=== PATIENT | female | born 1950 | race Caucasian/White ===

== ENCOUNTER 2024-03-27 16:21 | Inpatient (IN) | payer MEDICAID ==
[~2024-03-27] VITALS: Ht 152.4 cm; Wt 77.7 kg
[~2024-03-27 16:21] MED LIST: AMLO-375 MT; ASPI-1497 MT; FERR325T6 PO; LEVO100T9 PO; LISI40TA13 PO; METF-416 PO; OMEP20CA14 PO; PIOG15TA68 PO; SIMV-345 PO; SIMV-46 PO
[2024-03-27 16:27] VITALS: O2SAT 98
[2024-03-27 17:00] LABS: BASOPHILS % 0.2 % (0.0-2.0); EOSINOPHILS % 0.5 % (0.0-5.0); HEMATOCRIT. 32.5 % (36.0-48.0); HEMOGLOBIN. 11.4 g/dL (12.0-16.0); LYMPHOCYTES % 17.8 % (20.0-50.0); MEAN CORPUSCULAR HEMOGLOBIN 31.7 pg (28.0-32.0); MEAN CORPUSCULAR HGB CONC 34.9 g/dL (31.0-37.0); MEAN CORPUSCULAR VOLUME 90.9 fL (81.0-99.0); NEUTROPHILS % 74.5 % (40.0-76.0); PLATELET 297 x1000/uL (130-400); RED BLOOD CELL COUNT 3.58 mill/uL (4.2-5.4); RED CELL DISTRIBUTION WIDTH 12.6 % (11.6-14.6); WHITE BLOOD COUNT 11.2 x1000/uL (4.5-11.0)
[2024-03-27 17:03] LABS: POTASSIUM 3.4 mEq/L (3.5-5.1)
[2024-03-27 17:08] LABS: INR 0.9; PROTHROMBIN TIME 10.2 sec (9.6-11.0)
[2024-03-27 17:09] LABS: CREATININE 1.1 mg/dL (0.6-1.0)
[2024-03-27] MEDS: SODIUM CHLORIDE 0.9% 1,000 ML IV ONE (17:59)
[2024-03-27 19:01] LABS: CLARITY URINE CLEAR (CLEAR); COLOR URINE YELLOW (YELLOW); GLUCOSE URINE NEGATIVE (NEGATIVE); KETONES URINE NEGATIVE (NEGATIVE); LEUKOCYTE ESTERASE URINE TRACE (NEGATIVE); NITRITE URINE NEGATIVE (NEGATIVE); OCCULT BLOOD URINE TRACE (NEGATIVE); PH URINE 7.5 (4.5-8.0); PROTEIN URINE NEGATIVE (NEGATIVE); SPECIFIC GRAVITY URINE 1.006 (1.005-1.030); UROBILINOGEN URINE 0.2 E.U./dL (0.2-1.0)
[2024-03-27 19:19] LABS: BACTERIA URINE TRACE; RBC URINE 0-2 /hpf (0-2); SQUAMOUS EPITHELIAL CELL URINE FEW /lpf (RARE/1+); WBC URINE 0-2 /hpf (0-2)
[2024-03-27] MEDS: HYDROCODONE/ACETAMINOPHEN 5/325MG TABLET PO ONE (21:30)
[2024-03-28] VITALS (68 sets, daily range): BP systolic 109–150; BP diastolic 51–117; PULSE 52–96; RESP 12–29; TEMP 97.1–97.6
[2024-03-28 01:02] LABS: CHLORIDE 90 mEq/L (98-107)
[2024-03-28 01:03] LABS: CALCIUM 12.3 mg/dL (8.7-10.4); CARBON DIOXIDE 21 mEq/L (21-32)
[2024-03-28 01:08] LABS: CREATININE 0.9 mg/dL (0.6-1.0); GLUCOSE 161 mg/dL (70-105); UREA NITROGEN BLOOD 13 mg/dL (9-23)
[2024-03-28 01:10] LABS: PHOSPHORUS 3.2 mg/dL (2.5-4.9)
[2024-03-28 01:13] LABS: T4 FREE 1.38 ng/dL (0.89-1.76); THYROID STIMULATING HORMONE 16.03 uIU/mL (0.55-4.78)
[2024-03-28 01:20] LABS: SODIUM 116 mEq/L (136-145)
[2024-03-28] MEDS ORDERED: SODIUM CHLORIDE 3% 500ML IV SOLN IV ONE (02:00)
[2024-03-28] MEDS: MAGNESIUM 2 G PREMIX 50 ML IV ONE (02:55)
[2024-03-28] MEDS: KCL 20MEQ/100ML PREMIX 100 ML IV ONE (02:55)
[2024-03-28] MEDS: POTASSIUM CHLORIDE 20MEQ TABLET SR PO ONE (02:56)
[2024-03-28] MEDS: SODIUM CHLORIDE 3% 150 ML IV NR (03:08)
[2024-03-28] MEDS: DESMOPRESSIN ACETATE 4MCG/ML AMP IV ONE (03:33)
[2024-03-28] MEDS ORDERED: DOPAMINE 400MG/250ML PREMIX 250 ML IV PRN (05:30)
[2024-03-28] MEDS: SODIUM CHLORIDE 0.9% 1,000 ML IV SCH (06:25)
[2024-03-28] MEDS: ATROPINE SULFATE 1MG/10ML SYR IV PRN (07:04)
[2024-03-28 08:32] LABS: BASOPHILS % 0.3 % (0.0-2.0); EOSINOPHILS % 0.1 % (0.0-5.0); HEMATOCRIT. 31.2 % (36.0-48.0); HEMOGLOBIN. 10.9 g/dL (12.0-16.0); LYMPHOCYTES % 12.5 % (20.0-50.0); MEAN CORPUSCULAR HEMOGLOBIN 31.6 pg (28.0-32.0); MEAN CORPUSCULAR HGB CONC 35.1 g/dL (31.0-37.0); MEAN CORPUSCULAR VOLUME 90.3 fL (81.0-99.0); MEAN PLATELET VOLUME 7.7 fl (7.4-10.4); NEUTROPHILS % 81.1 % (40.0-76.0); PLATELET 245 x1000/uL (130-400); RED BLOOD CELL COUNT 3.45 mill/uL (4.2-5.4); RED CELL DISTRIBUTION WIDTH 12.7 % (11.6-14.6); WHITE BLOOD COUNT 8.4 x1000/uL (4.5-11.0)
[2024-03-28 08:45] LABS: CHLORIDE 93 mEq/L (98-107); POTASSIUM 3.9 mEq/L (3.5-5.1)
[2024-03-28 08:46] LABS: CALCIUM 9.3 mg/dL (8.7-10.4); CARBON DIOXIDE 20 mEq/L (21-32)
[2024-03-28 08:51] LABS: CREATININE 0.7 mg/dL (0.6-1.0); GLUCOSE 194 mg/dL (70-105); UREA NITROGEN BLOOD 9 mg/dL (9-23)
[2024-03-28 09:17] LABS: SODIUM 120 mEq/L (136-145)
[2024-03-28 09:18] LABS: TROPONIN I HIGH SENSITIVITY 36 ng/L (3.0-34)
[2024-03-28] MEDS ORDERED: LEVOTHYROXINE SODIUM 150MCG TABLET PO SCH (11:00)
[2024-03-28] MEDS: AMLODIPINE 5MG TABLET PO SCH (11:29)
[2024-03-28] MEDS: METFORMIN HCL 500MG TABLET PO SCH (11:29)
[2024-03-28] MEDS: BENAZEPRIL 10MG TABLET PO SCH (11:29)
[2024-03-28] MEDS: FAMOTIDINE 20MG/2ML VIAL IV SCH (11:29)
[2024-03-28 13:09] LABS: POTASSIUM 3.7 mEq/L (3.5-5.1)
[2024-03-28 13:22] LABS: AMMONIA < 17 uMol/L (<32)
[2024-03-28] MEDS: LEVOTHYROXINE SODIUM 100 MCG/ VIAL IV NR (13:23)
[2024-03-28 13:26] LABS: IRON 86 ug/dL (50-170)
[2024-03-28 13:29] LABS: TOTAL IRON BINDING CAPACITY 205 ug/dl (250-425)
[2024-03-28 13:32] LABS: FERRITIN 81 ng/mL (10-291); VITAMIN B12 SERUM 601 pg/mL (211-911)
[2024-03-28 13:47] LABS: FOLIC ACID (FOLATE) SERUM > 20.00 ng/mL (>5.38)
[2024-03-28] MEDS ORDERED: GLIP5TAB22 PO (14:41)
[2024-03-28] MEDS ORDERED: LISI40TA13 PO (14:42)
[2024-03-28] MEDS ORDERED: LEVO100T9 PO (14:45)
[2024-03-28] MEDS ORDERED: FERR325T30 PO (14:45)
[2024-03-28] MEDS ORDERED: ATOR40TA70 PO (14:45)
[2024-03-28] MEDS ORDERED: LINA5TAB PO (14:45)
[2024-03-28] MEDS ORDERED: CHLO25TA2 PO (14:45)
[2024-03-28] MEDS ORDERED: AMLO10TA80 PO (14:45)
[2024-03-28] MEDS ORDERED: DORZ10DR9 EACHEYE (14:45)
[2024-03-28] MEDS ORDERED: LATA2.5D14 EACHEYE (14:45)
[2024-03-28] MEDS ORDERED: PIOG15TA66 PO (14:45)
[2024-03-28] MEDS ORDERED: METF-416 PO ×2 (14:46)
[2024-03-28] MEDS: MAGNESIUM 4 G PREMIX 100 ML IV NR (16:30)
[2024-03-28] MEDS ORDERED: DEXTROSE 50% WATER 50ML SYRINGE IV PRN (19:15)
[2024-03-28] MEDS: BLOOD SUGAR DIAGNOSTIC STRIP TEST SCH (20:16)
[2024-03-28] MEDS: ATORVASTATIN CALCIUM 20MG TABLET PO SCH (20:22)
[2024-03-28] MEDS: INSULIN LISPRO 100 UNITS/ML SUBCUT SCH (20:25)
[2024-03-29] VITALS (44 sets, daily range): BP systolic 112–161; BP diastolic 51–133; PULSE 63–85; RESP 14–32; TEMP 97.4–97.8
[2024-03-29 07:04] LABS: CHLORIDE 93 mEq/L (98-107); POTASSIUM 3.2 mEq/L (3.5-5.1); SODIUM 122 mEq/L (136-145)
[2024-03-29 07:05] LABS: CARBON DIOXIDE 22 mEq/L (21-32)
[2024-03-29 07:06] LABS: CALCIUM 8.5 mg/dL (8.7-10.4)
[2024-03-29 07:10] LABS: CREATININE 0.7 mg/dL (0.6-1.0)
[2024-03-29 07:11] LABS: GLUCOSE 143 mg/dL (70-105); UREA NITROGEN BLOOD 6 mg/dL (9-23)
[2024-03-29 07:12] LABS: BASOPHILS % 0.2 % (0.0-2.0); EOSINOPHILS % 0.5 % (0.0-5.0); HEMATOCRIT. 33.7 % (36.0-48.0); HEMOGLOBIN. 11.5 g/dL (12.0-16.0); LYMPHOCYTES % 12.5 % (20.0-50.0); MEAN CORPUSCULAR HEMOGLOBIN 32.5 pg (28.0-32.0); MEAN CORPUSCULAR HGB CONC 34.1 g/dL (31.0-37.0); MEAN CORPUSCULAR VOLUME 95.4 fL (81.0-99.0); MEAN PLATELET VOLUME 8.5 fl (7.4-10.4); NEUTROPHILS % 79.8 % (40.0-76.0); PLATELET 244 x1000/uL (130-400); RED BLOOD CELL COUNT 3.54 mill/uL (4.2-5.4); RED CELL DISTRIBUTION WIDTH 12.7 % (11.6-14.6); WHITE BLOOD COUNT 8.8 x1000/uL (4.5-11.0)
[2024-03-29] MEDS: LEVOTHYROXINE SODIUM 150MCG TABLET PO SCH (08:39)
[2024-03-29] MEDS: MAGNESIUM 4 G PREMIX 100 ML IV NR (10:05)
[2024-03-29] MEDS: POTASSIUM CHLORIDE 20MEQ/PACKET PO NR (10:05)
[2024-03-29] MEDS: ACETAMINOPHEN 325MG TABLET PO PRN (10:53)
[2024-03-30] VITALS: BP 156/65; PULSE 81; RESP 19; TEMP 98.4
[2024-03-30 04:00] VITALS: BP 140/59; PULSE 78; RESP 19; TEMP 98.6
[2024-03-30 06:56] LABS: CARBON DIOXIDE 22 mEq/L (21-32); CHLORIDE 92 mEq/L (98-107); POTASSIUM 3.2 mEq/L (3.5-5.1); SODIUM 121 mEq/L (136-145)
[2024-03-30 06:57] LABS: CALCIUM 8.4 mg/dL (8.7-10.4)
[2024-03-30 07:02] LABS: CREATININE 0.6 mg/dL (0.6-1.0); GLUCOSE 177 mg/dL (70-105)
[2024-03-30 07:04] LABS: PHOSPHORUS 2.4 mg/dL (2.5-4.9)
[2024-03-30 07:05] LABS: BASOPHILS % 0.2 % (0.0-2.0); EOSINOPHILS % 0.6 % (0.0-5.0); HEMATOCRIT. 30.3 % (36.0-48.0); HEMOGLOBIN. 10.6 g/dL (12.0-16.0); LYMPHOCYTES % 10.5 % (20.0-50.0); MEAN CORPUSCULAR HEMOGLOBIN 32.4 pg (28.0-32.0); MEAN CORPUSCULAR VOLUME 92.5 fL (81.0-99.0); MEAN PLATELET VOLUME 8.6 fl (7.4-10.4); MONOCYTES % 8.7 % (2.0-8.0); PLATELET 237 x1000/uL (130-400); RED BLOOD CELL COUNT 3.28 mill/uL (4.2-5.4); RED CELL DISTRIBUTION WIDTH 12.7 % (11.6-14.6); WHITE BLOOD COUNT 8.1 x1000/uL (4.5-11.0)
[2024-03-30 07:13] LABS: UREA NITROGEN BLOOD < 5 mg/dL (9-23)
[2024-03-30 08:00] VITALS: BP 149/69; PULSE 73; RESP 17; TEMP 97.9
[2024-03-30] MEDS: POTASSIUM CHLORIDE 20MEQ TABLET SR PO NR (08:55)
[2024-03-30] MEDS ORDERED: SODIUM PHOSPHATE 20 MMOL in DEXT 5% WATER 243.3333 ML IV NR (10:00)
[2024-03-30 12:00] VITALS: BP 141/59; PULSE 78; RESP 13; TEMP 98.2
[2024-03-30] MEDS: POTASSIUM PHOSPHATE 20MMOL in DEXT 5% WATER 250ML IV NR (14:15)
[2024-03-30 16:00] VITALS: BP 139/61; PULSE 85; RESP 18; TEMP 98.3
[2024-03-30] MEDS: MAGNESIUM 2 G PREMIX 50 ML IV NR (16:25)
[2024-03-30 20:00] VITALS: BP 142/60; PULSE 80; RESP 18; TEMP 100.6
[2024-03-31] VITALS: BP 136/55; PULSE 87; RESP 19; TEMP 98.4
[2024-03-31 04:00] VITALS: BP 143/60; PULSE 79; RESP 19; TEMP 98.1
[2024-03-31 07:43] LABS: CHLORIDE 94 mEq/L (98-107); POTASSIUM 3.5 mEq/L (3.5-5.1); SODIUM 124 mEq/L (136-145)
[2024-03-31 07:44] LABS: CALCIUM 8.5 mg/dL (8.7-10.4); CARBON DIOXIDE 22 mEq/L (21-32)
[2024-03-31 07:47] LABS: BASOPHILS % 0.2 % (0.0-2.0); EOSINOPHILS % 0.8 % (0.0-5.0); HEMATOCRIT. 29.4 % (36.0-48.0); HEMOGLOBIN. 10.4 g/dL (12.0-16.0); LYMPHOCYTES % 14.1 % (20.0-50.0); MEAN CORPUSCULAR HEMOGLOBIN 32.1 pg (28.0-32.0); MEAN CORPUSCULAR HGB CONC 35.5 g/dL (31.0-37.0); MEAN CORPUSCULAR VOLUME 90.4 fL (81.0-99.0); MEAN PLATELET VOLUME 8.3 fl (7.4-10.4); NEUTROPHILS % 73.9 % (40.0-76.0); PLATELET 240 x1000/uL (130-400); RED BLOOD CELL COUNT 3.25 mill/uL (4.2-5.4); RED CELL DISTRIBUTION WIDTH 12.7 % (11.6-14.6); WHITE BLOOD COUNT 6.5 x1000/uL (4.5-11.0)
[2024-03-31 07:49] LABS: CREATININE 0.6 mg/dL (0.6-1.0); GLUCOSE 172 mg/dL (70-105)
[2024-03-31 07:52] LABS: PHOSPHORUS 2.7 mg/dL (2.5-4.9)
[2024-03-31 08:00] VITALS: BP 138/61; PULSE 76; RESP 18; TEMP 97.4
[2024-03-31 08:06] LABS: UREA NITROGEN BLOOD < 5 mg/dL (9-23)
[2024-03-31] MEDS ORDERED: POTASSIUM PHOSPHATE 20 MMOL in DEXT 5% WATER 243.3333 ML IV ONE (09:15)
[2024-03-31] MEDS: POTASSIUM CHLORIDE 20MEQ TABLET SR PO NR (09:31)
[2024-03-31] MEDS: MAGNESIUM 2 G PREMIX 50 ML IV SCH (11:25)
[2024-03-31 12:00] VITALS: BP 118/57; PULSE 85; RESP 18; TEMP 97.9
[2024-03-31 16:00] VITALS: BP 138/61; PULSE 76; RESP 18; TEMP 97.4
[2024-03-31 20:00] VITALS: BP 145/64; PULSE 92; RESP 19; TEMP 98.8
[2024-04-01] VITALS: BP 142/60; PULSE 95; RESP 19; TEMP 98.4
[2024-04-01 04:00] VITALS: BP 127/56; PULSE 92; RESP 19; TEMP 99
[2024-04-01 06:34] LABS: BASOPHILS % 0.1 % (0.0-2.0); EOSINOPHILS % 0.4 % (0.0-5.0); HEMATOCRIT. 30.2 % (36.0-48.0); HEMOGLOBIN. 10.7 g/dL (12.0-16.0); LYMPHOCYTES % 11.5 % (20.0-50.0); MEAN CORPUSCULAR HEMOGLOBIN 32.4 pg (28.0-32.0); MEAN CORPUSCULAR HGB CONC 35.3 g/dL (31.0-37.0); MEAN CORPUSCULAR VOLUME 91.9 fL (81.0-99.0); MEAN PLATELET VOLUME 8.2 fl (7.4-10.4); MONOCYTES % 9.9 % (2.0-8.0); NEUTROPHILS % 78.1 % (40.0-76.0); PLATELET 253 x1000/uL (130-400); RED BLOOD CELL COUNT 3.29 mill/uL (4.2-5.4); RED CELL DISTRIBUTION WIDTH 12.9 % (11.6-14.6); WHITE BLOOD COUNT 9.8 x1000/uL (4.5-11.0)
[2024-04-01 06:38] LABS: CARBON DIOXIDE 22 mEq/L (21-32); CHLORIDE 94 mEq/L (98-107); POTASSIUM 3.5 mEq/L (3.5-5.1); SODIUM 124 mEq/L (136-145)
[2024-04-01 06:39] LABS: CALCIUM 8.6 mg/dL (8.7-10.4)
[2024-04-01 06:44] LABS: CREATININE 0.7 mg/dL (0.6-1.0); GLUCOSE 171 mg/dL (70-105); UREA NITROGEN BLOOD 9 mg/dL (9-23)
[2024-04-01 06:46] LABS: PHOSPHORUS 2.3 mg/dL (2.5-4.9)
[2024-04-01 08:00] VITALS: BP 132/58; PULSE 83; RESP 18; TEMP 97.3
[2024-04-01 12:00] VITALS: BP 121/53; PULSE 85; RESP 18; TEMP 98
[2024-04-01] MEDS: MAGNESIUM 4 G PREMIX 100 ML IV SCH (15:29)
[2024-04-01] MEDS ORDERED: SODIUM CHLORIDE 3% 500ML IV SOLN IV ONE (15:45)
[2024-04-01 16:00] VITALS: BP 130/67; PULSE 71; RESP 18; TEMP 97.9
[2024-04-01] MEDS: SODIUM CHLORIDE 3% 150 ML IV NR (17:32)
[2024-04-01 20:00] VITALS: BP 148/60; PULSE 85; RESP 18; TEMP 97.2
[2024-04-01] MEDS: POTASSIUM-SODIUM PHOSPHATE POWDER PACKET PO NR (23:15)
[2024-04-02] VITALS: BP 157/59; PULSE 84; RESP 18; TEMP 97.3
[2024-04-02 04:00] VITALS: BP 143/65; PULSE 74; RESP 18; TEMP 96.3
[2024-04-02] MEDS: POTASSIUM-SODIUM PHOSPHATE POWDER PACKET PO NR (06:55)
[2024-04-02 07:53] LABS: BASOPHILS % 0.3 % (0.0-2.0); EOSINOPHILS % 1.5 % (0.0-5.0); HEMATOCRIT. 29.8 % (36.0-48.0); HEMOGLOBIN. 10.4 g/dL (12.0-16.0); LYMPHOCYTES % 20.9 % (20.0-50.0); MEAN CORPUSCULAR HEMOGLOBIN 32.3 pg (28.0-32.0); MEAN CORPUSCULAR HGB CONC 34.8 g/dL (31.0-37.0); MEAN CORPUSCULAR VOLUME 92.7 fL (81.0-99.0); MEAN PLATELET VOLUME 7.8 fl (7.4-10.4); MONOCYTES % 9.2 % (2.0-8.0); NEUTROPHILS % 68.1 % (40.0-76.0); PLATELET 291 x1000/uL (130-400); RED BLOOD CELL COUNT 3.22 mill/uL (4.2-5.4); RED CELL DISTRIBUTION WIDTH 12.9 % (11.6-14.6); WHITE BLOOD COUNT 5.9 x1000/uL (4.5-11.0)
[2024-04-02 08:00] VITALS: BP 128/59; PULSE 74; RESP 18; TEMP 97.1
[2024-04-02 08:09] LABS: CARBON DIOXIDE 23 mEq/L (21-32); CHLORIDE 96 mEq/L (98-107); POTASSIUM 3.7 mEq/L (3.5-5.1); SODIUM 128 mEq/L (136-145)
[2024-04-02 08:10] LABS: CALCIUM 8.6 mg/dL (8.7-10.4)
[2024-04-02 08:14] LABS: CREATININE 0.6 mg/dL (0.6-1.0); GLUCOSE 166 mg/dL (70-105); URIC ACID 4.8 mg/dL (3.1-7.8)
[2024-04-02 08:15] LABS: UREA NITROGEN BLOOD 10 mg/dL (9-23)
[2024-04-02 08:17] LABS: PHOSPHORUS 2.7 mg/dL (2.5-4.9)
[2024-04-02 12:00] VITALS: BP 139/60; PULSE 74; RESP 17; TEMP 97.4
[2024-04-02 16:00] VITALS: BP 130/56; PULSE 77; RESP 18; TEMP 97.7
[2024-04-02 20:00] VITALS: BP 145/58; PULSE 86; RESP 20; TEMP 96.5
[2024-04-03] VITALS: BP 115/48; PULSE 81; RESP 18; TEMP 97.2
[2024-04-03 04:00] VITALS: BP 140/60; PULSE 82; RESP 18; TEMP 97
[2024-04-03 08:26] VITALS: BP 112/79; PULSE 77; RESP 17; TEMP 97.1
[2024-04-03 12:00] VITALS: BP 114/46; PULSE 74; RESP 17; TEMP 97.4
[2024-04-03 12:22] LABS: CHLORIDE 97 mEq/L (98-107); POTASSIUM 3.6 mEq/L (3.5-5.1); SODIUM 131 mEq/L (136-145)
[2024-04-03 12:23] LABS: CARBON DIOXIDE 23 mEq/L (21-32)
[2024-04-03 12:24] LABS: CALCIUM 8.8 mg/dL (8.7-10.4)
[2024-04-03 12:28] LABS: CREATININE 0.7 mg/dL (0.6-1.0)
[2024-04-03 12:29] LABS: GLUCOSE 130 mg/dL (70-105); UREA NITROGEN BLOOD 14 mg/dL (9-23)
[2024-04-03] MEDS ORDERED: METF-414 PO (14:13)
[2024-04-03] MEDS ORDERED: SYN150 PO (14:13)
[2024-04-03] MEDS ORDERED: BENA10TA74 PO (14:13)
[2024-04-03] MEDS ORDERED: AMLO5TAB88 PO (14:13)
[2024-04-03 16:00] VITALS: BP 124/62; PULSE 71; RESP 17; TEMP 97.8
== END 2024-04-03 17:00 | disposition home or self-care (01) | DRG 426 ==
LOC: ER 16:21 → EDBEDREQ 19:52 → EDBEDREQSVC 21:09 → CVICU 03-28 05:08 → 7EST 03-29 21:40
PROVIDERS: ADMIT Internal Medicine; ATTEND Internal Medicine
DX: E87.1 Hypo-osmolality and hyponatremia (principal); G93.41 Metabolic encephalopathy; I42.9 Cardiomyopathy, unspecified; E83.39 Other disorders of phosphorus metabolism; E83.51 Hypocalcemia; I50.22 Chronic systolic (congestive) heart failure; M50.222 Other cervical disc displacement at C5-C6 level; I11.0 Hypertensive heart disease with heart failure; S52.515A Nondisplaced fracture of left radial styloid process, initial encounter for closed fracture; Z68.33 Body mass index [BMI] 33.0-33.9, adult; E11.65 Type 2 diabetes mellitus with hyperglycemia; D64.9 Anemia, unspecified; E03.9 Hypothyroidism, unspecified; E66.9 Obesity, unspecified; W18.30XA Fall on same level, unspecified, initial encounter; Y93.89 Activity, other specified; Y92.89 Other specified places as the place of occurrence of the external cause; Y99.8 Other external cause status; E83.42 Hypomagnesemia; E86.9 Volume depletion, unspecified; E87.6 Hypokalemia; M48.02 Spinal stenosis, cervical region; M85.80 Other specified disorders of bone density and structure, unspecified site; R00.1 Bradycardia, unspecified; S00.03XA Contusion of scalp, initial encounter; E78.00 Pure hypercholesterolemia, unspecified; D72.829 Elevated white blood cell count, unspecified; Z79.82 Long term (current) use of aspirin; Z79.84 Long term (current) use of oral hypoglycemic drugs; Z83.3 Family history of diabetes mellitus
CPT/HCPCS: 36415; 70551; 71045; 73110; 73522; 80048; 80061; 81003; 82140; 82306; 82533; 82607; 82728; 82746; 82962; 83036; 83540; 83550; 83735; 83930; 84100; 84132; 84145; 84439; 84443; 84481; 84484; 84550; 85025; 93005; 93306; 97116; 97162; 97530; 99291; J0461; J1815; J2597; J3475; J3480; J3490; J7030; J7060